=== PATIENT | male | born 1950 | race Caucasian/White ===

== ENCOUNTER 2020-08-19 08:31 | Day surgery (SDC) | payer OTHER, SELFPAY ==
--- NOTE | 2020-08-19 07:37 | W.ANESPRE ---
General Info Date of Service Date Performed: 08/19/20 Height: 5 ft 9 in Weight: 69.4 kg Body Mass Index (BMI): 22.6 Surgical Procedure: Operation Date: 08/19/20 10:40 Proposed Procedures Side Surgeon p Cataract Extraction with IOL Implant Right Mariusz Sanchez MD Meds Allergies and Home Medications Allergies Allergy/AdvReac Type Severity Reaction Status Date / Time naloxone Allergy Intermediate Skin Rash Unverified 08/19/20 08:52 simvastatin AdvReac Severe CRAMPS Unverified 08/19/20 08:52 shellfish derived AdvReac Intermediate Nausea Unverified 08/19/20 08:52 Home Medication Medication Instructions Recorded albuterol sulfate 2 puff INHALATION QID PRN 08/17/20 amlodipine 5 mg PO DAILY 08/17/20 aspirin 81 mg PO DAILY 08/17/20 budesonide-formoterol 2 puff INHALATION BID 08/17/20 diazepam 7.5 mg PO DAILY PRN 08/17/20 docusate sodium 100 mg PO BID 08/17/20 finasteride 5 mg PO DAILY 08/17/20 gabapentin 300 mg PO BID 08/17/20 metoprolol succinate 50 mg PO DAILY 08/17/20 nicotine 1 patch TRANSDERMAL Q24H 08/17/20 tamsulosin 0.8 mg PO DAILY 08/17/20 tiotropium bromide 2.5 puff INHALATION DAILY 08/17/20 Current Visit Medications: Current Medications Generic Name Dose Route Start Last Admin Trade Name Freq PRN Reason Stop Dose Admin Acetaminophen 1,000 mg 08/19/20 06:00 Acetaminophen 500 Mg Tab PO Q4H PRN PRN Miscellaneous Medication 0 ml 08/19/20 06:00 Prednisolone 1%, Moxifloxacin 0.5%, Nepafenac 0.1% 5ml Btl OD DIRECTED FLAKITA Miscellaneous Medication 0 ml 08/19/20 06:00 Tropicam./Phenyleph. (1/2.5%) 5 Ml Btl OD DIRECTED FLAKITA Tetracaine HCl 0 ml 08/19/20 06:00 Tetracaine 0.5% 4 Ml Btl OD DIRECTED FLAKITA PFSH Active Problems Active Problems: Problem Status Onset Code Posterior subcapsular age-related cataract, right eye H25.041 Cortical cataract of right eye H26.9 Nuclear sclerotic cataract of right eye H25.11 Medical History Medical History Allergy Barretts esophagus Benign hypertension BPH (benign prostatic hyperplasia) Cannabis dependence, episodic Carcinoma of renal pelvis Chronic alcoholism in remission COPD (chronic obstructive pulmonary disease) Coronary arteriosclerosis Edema Hammer toe Hyponatremia Impaired fasting glucose Lack of housing Pt. states he is all set with housing has a place. Lumbar radiculopathy Major depressive disorder, recurrent Osteoarthritis involving of spine per note Plantar wart Self-catheterizes urinary bladder Shoulder pain Spasm of thoracic back muscle Spinal stenosis, cervical region Tobacco use Surgical History Surgical History (Updated 08/19/20 @ 08:50 by Anayeli Machuca) History of coronary artery bypass graft x 1 2014 [facility] Hx of colonoscopy Hx of neck surgery S/P AVR (aortic valve replacement) 2014 F/U with [facility] Tobacco Smoking/Tobacco Use Status: Current every day Tobacco Type: cigarettes Alcohol Alcohol Intake: former Substance Use Substance use: Occasionally Substance use type: marijuana Vital Signs and Lab Results Lab Results Blood Type / Crossmatch: No Data to Display Complete Blood Count: No Data to Display Complete Metabolic Panel: No Data to Display Liver Function Panel: No Data to Display Coagulation Panel: No Data to Display Cardiac Panel: No Data to Display Arterial Blood Gas: No Data to Display Venous Blood Gas: No Data to Display Pancreas Panel: No Data to Display Thyroid Panel: No Data to Display Infectious Disease: No Data to Display Blood Cultures: No Data to Display Toxicology Panel: No Data to Display Anesthesia Assessment and Plan Anesthesia History Personal History: No History of Anesthesia Complications Family History: No Family History of Anesthesia Complications Exercise Tolerance Exercise Tolerance: Metabolic Equivalents>4 Pertinent Negatives Pertinent Negatives: No Symptoms of GERD, No Major Cardiovascular Symptoms or Complaints, No Major Pulmonary Symptoms or Complaints and No History of CVA/TIA Cardiac & Pulmonary Exam Cardiac Exam: Normal S1/S2 Heart Sounds Pulmonary Exam: Clear Bilateral Breath Sounds Airway Exam Known Difficult Airway: No Mallampati Class: 3 Mouth Opening: Normal (> 3cm) Thyromental Distance: Greater than 3 cm Neck Range of Motion: Limited ROM Neck Circumference: Normal Teeth Condition: Edentulous ASA Classification ASA Score: ASA 3 Emergency Case?: No NPO Status NPO Status: NPO Clears >2 hours, Solids >8 hours Anesthesia Plan Resuscitation Status: Full Code Anesthesia Technique: MAC Anesthesia Airway Planned: Natural Airway Monitors Used: Standard Monitors
[2020-08-19] MEDS: Tropicam./Phenyleph. (1/2.5%) 5 ML BTL OD ×3 (08:49→09:02)
[2020-08-19 09:03] VITALS: BP 140/104; PULSE 91; RESP 16; TEMP 36.5; O2SAT 98
[2020-08-19 09:34] VITALS: BMI 22.6
[2020-08-19] MEDS: Balanced Salt Soln.-PLUS 500 ML BAG (09:57)
--- NOTE | 2020-08-19 09:57 | W.ANESPOSTOP ---
Postoperative Evaluation Date, Time and Location Date Performed: 08/19/20 Time Performed: 10:27 Patient Location: Day Surgery Unit Vital Signs Most Recent Imported Vital Signs: Most Recent Vital Signs Temp Pulse Resp BP Pulse Ox 36.5 C 91 H 16 140/104 H 98 08/19/20 09:03 08/19/20 09:03 08/19/20 09:03 08/19/20 09:03 08/19/20 09:03 Most Recent Manually Entered Vital Signs: Adult Blood Pressure: 141/63 Heart Rate: 72 Respirations: 16 Oxygen Saturation (%): 96 Temperature (C): 36.5 C Pain Score (0-10 Scale): 0 Pain Score Most Recent Pain Score: Most Recent Pain Score Pain Level 2 08/19/20 09:03 Assessment Mental Status: Awake (Alert & Oriented to Patient Baseline) Airway and Respiratory Function: Patent airway with normal (patient baseline) respiratory exam Cardiovascular Function: Hemodynamically Stable Hydration Status: Adequately Hydrated Nausea & Vomiting: No Nausea or Vomiting Pain: Pt. Denies Any Pain Peripheral Nerve Block: Other (Local by Dr. Sanchez)
[2020-08-19] MEDS: Duovisc Viscoelastic System EACH 1 EACH (09:58)
[2020-08-19] MEDS: Lidocaine 1% Pres-Free 5 ML VIAL (09:59)
[2020-08-19] MEDS: Lidocaine 2% Jelly 6 ML SYR (10:00)
[2020-08-19] MEDS: Povidone-Iodine Ophth 30 ML BTL (10:02)
[2020-08-19] MEDS: Trypan Blue 0.06% 0.5 ML SYR (10:03)
[2020-08-19 10:25] VITALS: BP 141/63; PULSE 72; RESP 16; TEMP 36.5; O2SAT 96
--- NOTE | 2020-08-19 10:27 | W.PM.DSUDISC ---
Discharge Plan Disposition Patient Disposition: HOME Condition: Good Discharge Details Attending Provider: Mariusz Sanchez [facility] Provider[facility] Home Meds and New Rx's Prescriptions: No Action metoprolol succinate 50 mg Tablet Extended Release 24 Hr 50 mg PO DAILY RF: 0 tamsulosin 0.4 mg Capsule 0.8 mg PO DAILY RF: 0 nicotine 21 mg/24 hr Patch 24 Hour 1 patch transdermal Q24H RF: 0 gabapentin 300 mg Tablet 300 mg PO BID RF: 0 tiotropium bromide 2.5 mcg/actuation Mist 2.5 puff inhalation DAILY RF: 0 amlodipine 5 mg Tablet 5 mg PO DAILY RF: 0 aspirin 81 mg Tablet,Delayed Release (Dr/Ec) 81 mg PO DAILY RF: 0 albuterol sulfate 90 mcg/actuation Hfa Aerosol Inhaler 2 puff INHALATION QID PRNRF: 0 docusate sodium 100 mg Tablet 100 mg PO BID RF: 0 finasteride 5 mg Tablet 5 mg PO DAILY RF: 0 diazepam 5 mg Tablet 7.5 mg PO DAILY PRNRF: 0 budesonide-formoterol 160-4.5 mcg/actuation Hfa Aerosol Inhaler 2 puff inhalation BID RF: 0 Discharge Instructions Stand Alone Forms: Post-op Topical Cataract, Jarrett Mccormick ([facility]) Discharge Orders Discharge Orders: Discharge Order (Routine); Ordered 08/19/20 Ordered By: Mariusz Sanchez DS: Diagnosis Discharge Diagnosis (1) Nuclear sclerotic cataract of right eye: Status: Resolved (2) Cortical cataract of right eye: Status: Resolved (3) Posterior subcapsular age-related cataract, right eye: Status: Resolved
[2020-08-19 10:29] VITALS: BP 141/63; PULSE 72; RESP 16; TEMPC 36.5; O2SAT 96
--- NOTE | 2020-08-19 10:29 | W.PM.OP ---
Date of service: 08/19/20 Time of Service: 10:29 Operative Note Operative Note DATE OF PROCEDURE: 08/19/20 PRE-OP DIAGNOSIS: Nuclear/cortical/posterior subcapsular cataract, right eye Poor red reflex, right eye POST-OP DIAGNOSIS: same PROCEDURE: Cataract extraction using phacoemulsification with intraocular lens implantation, right eye, using capsular staining with Vision Blue SURGEON: Mariusz Sanchez ANESTHESIA TYPE: Local By Surgeon and MAC Refer to Anesthesia Record PATHOLOGY: none sent COMPLICATIONS: None Patient was transported to: same day Patient's condition: stable Implants: [employer] / [employer] Tecnis [id number] Indications: Progressive visual loss due to cataract, right eye Procedure Description: CATARACT SURGERY OPERATIVE REPORT PREOPERATIVE DIAGNOSIS: 1. Nuclear/cortical/posterior subcapsular cataract, right eye 2. Poor red reflex secondary to #1 POSTOPERATIVE DIAGNOSIS: Same OPERATION: 1. Cataract extraction using phacoemulsification with posterior chamber intraocular lens implant, right eye. 2. Capsular staining with Vision Blue IOL: IOL Campaign Fundraiser/Model: [employer] / CHRIS Tecnis [id number] IOL Power: + +19.0 diopters IOL Serial Number: [id number] Optic Diameter: 6.0mm Haptic/Overall Diameter: 13.0mm PHACO INFO: Karl mobintenturion Vision System with OZil and Active [employer] Cumulative Dispersed Energy (CDE): 9.67 seconds SURGEON: Mariusz Sanchez MD, WILLIE ANESTHESIA: Monitored Anesthesia Care (MAC), with local sub-tenon's anesthetic infiltration COMPLICATIONS: None SPECIMENS: None INDICATIONS FOR PROCEDURE: The patient is a 69-year-old gentleman with history of diminished visual acuity in his right eye. He is noted to have a dense posterior subcapsular cataract with nuclear and cortical cataract as well. He has very poor visual acuity. The option of cataract surgery was offered to the patient and he wished to proceed. PROCEDURE: The correct surgical eye was identified and marked as the right eye and the pupil was dilated in the preoperative area using mydriatics and cycloplegics. The dilated pupil size was 7.0 mm. Oral sedation was administered in the form of an Imprimis MKO Melt (midazolam 3mg/ketamine 25mg/ondansetron 2mg). The patient was brought to the operating room where cardiopulmonary monitoring was instituted and surgical time-out was performed, confirming the correct operative eye and IOL power. Positioning was challenging due to cervical fusion. Topical anesthesia was administered and ophthalmic povidone-iodine 5% was instilled into the conjunctival fornices. Lidocaine gel was applied to the cornea and the martha-ocular area was prepped with Betadine 10% solution and draped in the usual sterile fashion for intraocular surgery, including an aperture drape. A Tegaderm transparent film dressing was cut in half and used to cover the lashes and lid margins. Care was taken to sequester the lashes and lid margins under the Tegaderm dressing. A lid speculum was placed between the lids of the operative eye and the Hao-Joselin operating microscope was maneuvered into position. The patient had a strong Rhodes's phenomenon, making exposure challenging. Marshal scissors were then used to make a conjunctival buttonhole approximately 6mm posterior to the limbus in the inferonasal quadrant. Blunt dissection was carried out to expose bare sclera, and a blunt-tipped sub-tenon?s anesthesia cannula was introduced and passed posteriorly along the globe where non-preserved plain lidocaine was injected into posterior sub-Tenon?s space. A sideport knife was used to make a paracentesis port inferotemporally. Intraocular phenylephrine/lidocaine was injected into the anterior chamber. Air was injected into the anterior chamber, followed by Vision Blue, which was painted over the anterior capsule and then irrigated out with BSS. The anterior chamber was filled with viscoelastic. A 2.4mm keratome knife was used to create a half-thickness groove at the limbus and then to construct a three-plane near-clear corneal tunnel extending 2.0mm into clear cornea superiortemporally. A flap was raised on the anterior capsule and capsulorhexis forceps were used to complete a continuous curvilinear capsulorhexis of 5.0 mm. The anterior chamber was noted to be very deep. Balanced salt solution was then used to perform cortical cleaving hydrodissection and nuclear hydrodelineation until the lens could be freely rotated within the capsular bag. The lens nucleus was then disassembled and removed within the capsular bag and iris plane using phacoemulsification. Residual cortical material was removed using the I/A handpiece. The posterior capsule was carefully polished to remove as much residual lens epithelial cells as safely possible. The capsular bag was then inflated and the anterior chamber deepened with viscoelastic. The lens implant described above was inserted into the capsular bag using the CHRIS [place] Injector. A Kuglen hook was used to dial the IOL into position. Residual viscoelastic was then removed first from posterior to the IOL, then from the anterior chamber using the I/A handpiece. The lens implant was noted to center nicely within the capsular bag. The incisions were stromally hydrated, and the anterior chamber was reformed using BSS. Then 0.5cc of moxifloxacin 1.0mg/ml were injected into the capsular bag and anterior chamber. The incisions were checked with a Weck spear and found to be secure. Several drops of ophthalmic povidone-iodine 5% were then applied to the eye followed by two drops of Imprimis combination prednisolone/moxifloxacin/nepafenac solution. The drapes were removed and a clear plastic protective eye shield was placed over the eye. The patient was then returned to Same Day Surgery in stable condition.
[2020-08-19 10:53] VITALS: BP 111/75; PULSE 72; RESP 16; TEMP 36.6; O2SAT 96
== END 2020-08-19 11:04 | disposition home or self-care (01) ==
PROVIDERS: Visit Provider Ophthalmology
PROC: (CPT 66984; principal; 2020-08-19 10:30)
DX: H25.041 Posterior subcapsular polar age-related cataract, right eye (principal); I10 Essential (primary) hypertension; J44.9 Chronic obstructive pulmonary disease, unspecified
CPT/HCPCS: 66984; V2632

== ENCOUNTER 2020-10-28 11:24 | Outpatient (CLI) | payer OTHER, SELFPAY ==
[2020-10-28 13:23] LABS: Source Nasal/Nares
[2020-10-28 16:55] LABS: COVID-19 PCR Negative (Negative)
== END 2020-10-28 11:25 | disposition home or self-care (01) ==
PROVIDERS: PCP Nurse Practitioner Primary Care; Visit Provider Ophthalmology
DX: Z20.822 Contact with and (suspected) exposure to COVID-19 (principal); Z01.818 Encounter for other preprocedural examination
CPT/HCPCS: 87635

== ENCOUNTER 2020-10-31 08:05 | Day surgery (SDC) | payer OTHER, SELFPAY ==
[2020-10-31 08:44] VITALS: BP 141/74; PULSE 69; RESP 16; TEMP 36.6; O2SAT 96
[2020-10-31] MEDS: Tropicam./Phenyleph. (1/2.5%) 5 ML BTL OD ×3 (08:50→09:00)
[2020-10-31 09:07] VITALS: BMI 20.9
--- NOTE | 2020-10-31 09:07 | W.ANESPRE ---
General Info Date of Service Date Performed: 10/31/20 Height: 5 ft 9 in Weight: 64.5 kg Body Mass Index (BMI): 20.9 Surgical Procedure: Operation Date: 10/31/20 10:40 Proposed Procedures Side Surgeon p Cataract Extraction with IOL Implant Left Mariusz Sanchez MD Meds Allergies and Home Medications Allergies Allergy/AdvReac Type Severity Reaction Status Date / Time naloxone Allergy Intermediate Skin Rash Unverified 10/31/20 08:39 simvastatin AdvReac Severe CRAMPS Unverified 10/31/20 08:39 shellfish derived AdvReac Intermediate Nausea Unverified 10/31/20 08:39 Home Medication Medication Instructions Recorded albuterol sulfate 2 puff INHALATION QID PRN 08/17/20 amlodipine 5 mg PO DAILY 08/17/20 aspirin 81 mg PO DAILY 08/17/20 budesonide-formoterol 2 puff INHALATION BID 08/17/20 diazepam 7.5 mg PO DAILY PRN 08/17/20 docusate sodium 100 mg PO BID 08/17/20 finasteride 5 mg PO DAILY 08/17/20 gabapentin 300 mg PO BID 08/17/20 metoprolol succinate 50 mg PO DAILY 08/17/20 nicotine 1 patch TRANSDERMAL Q24H 08/17/20 tamsulosin 0.8 mg PO DAILY 08/17/20 tiotropium bromide 2.5 puff INHALATION DAILY 08/17/20 Current Visit Medications: Current Medications Generic Name Dose Route Start Last Admin Trade Name Freq PRN Reason Stop Dose Admin Acetaminophen 1,000 mg 10/31/20 06:00 Acetaminophen 500 Mg Tab PO Q4H PRN PRN Miscellaneous Medication 0 ml 10/31/20 06:00 Prednisolone 1%, Moxifloxacin 0.5%, Nepafenac 0.1% 5ml Btl OD DIRECTED FLAKITA Miscellaneous Medication 0 ml 10/31/20 06:00 10/31/20 09:00 Tropicam./Phenyleph. (1/2.5%) 5 Ml Btl OD 1 drp DIRECTED FLAKITA Administration Tetracaine HCl 0 ml 10/31/20 06:00 Tetracaine 0.5% 4 Ml Btl OD DIRECTED FLAKITA PFSH Active Problems Active Problems: Problem Status Onset Code Posterior subcapsular age-related cataract of left eye H25.042 Cortical cataract of left eye H26.9 Nuclear sclerotic cataract of left eye H25.12 Nuclear sclerotic cataract of right eye H25.11 Cortical cataract of right eye H26.9 Posterior subcapsular age-related cataract, right eye H25.041 Medical History Medical History Allergy Barretts esophagus Benign hypertension BPH (benign prostatic hyperplasia) Cannabis dependence, episodic Carcinoma of renal pelvis Chronic alcoholism in remission COPD (chronic obstructive pulmonary disease) Coronary arteriosclerosis Edema Hammer toe Hyponatremia Impaired fasting glucose Lack of housing Pt. states he is all set with housing has a place. Lumbar radiculopathy Major depressive disorder, recurrent Osteoarthritis involving of spine per note Plantar wart Self-catheterizes urinary bladder Shoulder pain Spasm of thoracic back muscle Spinal stenosis, cervical region Tobacco use Surgical History Surgical History History of coronary artery bypass graft x 1 2013 [facility]x of colonoscopy Hx of neck surgery S/P AVR (aortic valve replacement) 2013 F/[facility] Tobacco Smoking/Tobacco Use Status: Current every day Tobacco Type: cigarettes Smoking cigarettes per day: 15 Alcohol Alcohol Intake: former Substance Use Substance use: Rarely Substance use type: marijuana Details: Pt reports not using today Vital Signs and Lab Results Vital Signs Most Recent Vital Signs in EMR: Most Recent Vital Signs Temp Pulse Resp BP Pulse Ox 36.6 C 69 16 141/74 H 96 10/31/20 08:44 10/31/20 08:44 10/31/20 08:44 10/31/20 08:44 10/31/20 08:44 Lab Results Blood Type / Crossmatch: No Data to Display Complete Blood Count: No Data to Display Complete Metabolic Panel: No Data to Display Liver Function Panel: No Data to Display Coagulation Panel: No Data to Display Cardiac Panel: No Data to Display Arterial Blood Gas: No Data to Display Venous Blood Gas: No Data to Display Pancreas Panel: No Data to Display Thyroid Panel: No Data to Display Infectious Disease: Coronavirus (COVID-19)(PCR) Negative (Negative) 10/28/20 09:30 10/28/20 Coronavirus 2019 Source Nasal/Nares 10/28/20 09:30 10/28/20 Blood Cultures: No Data to Display Toxicology Panel: No Data to Display Anesthesia Assessment and Plan Anesthesia History Personal History: No History of Anesthesia Complications Family History: No Family History of Anesthesia Complications Exercise Tolerance Exercise Tolerance: Metabolic Equivalents>4 Pertinent Negatives Pertinent Negatives: No Symptoms of GERD, No Major Cardiovascular Symptoms or Complaints, No Major Pulmonary Symptoms or Complaints and No History of CVA/TIA Cardiac & Pulmonary Exam Cardiac Exam: Normal S1/S2 Heart Sounds Pulmonary Exam: Clear Bilateral Breath Sounds Airway Exam Known Difficult Airway: No Mallampati Class: 3 Mouth Opening: Normal (> 3cm) Thyromental Distance: Greater than 3 cm Neck Range of Motion: Limited ROM Neck Circumference: Normal Teeth Condition: Edentulous ASA Classification ASA Score: ASA 3 Emergency Case?: No NPO Status NPO Status: NPO Clears >2 hours, Solids >8 hours Anesthesia Plan Resuscitation Status: Full Code Anesthesia Technique: MAC Anesthesia Airway Planned: Natural Airway Monitors Used: Standard Monitors
[2020-10-31] MEDS: Povidone-Iodine Ophth 30 ML BTL (09:48)
[2020-10-31] MEDS: Tetracaine 0.5% 4 ML BTL OD (09:48)
[2020-10-31] MEDS: Balanced Salt Soln.-PLUS 500 ML BAG (09:48)
[2020-10-31] MEDS: Lidocaine 1% Pres-Free 5 ML VIAL (09:49)
[2020-10-31] MEDS: Lidocaine 2% Jelly 6 ML SYR (09:49)
[2020-10-31] MEDS: Duovisc Viscoelastic System EACH 1 EACH (09:49)
[2020-10-31] MEDS: Trypan Blue 0.06% 0.5 ML SYR (09:54)
--- NOTE | 2020-10-31 10:08 | W.ANESPOSTOP ---
Postoperative Evaluation Date, Time and Location Date Performed: 10/31/20 Time Performed: 10:12 Patient Location: Day Surgery Unit Vital Signs Most Recent Imported Vital Signs: Most Recent Vital Signs Temp Pulse Resp BP Pulse Ox 36.6 C 69 16 141/74 H 96 10/31/20 08:44 10/31/20 08:44 10/31/20 08:44 10/31/20 08:44 10/31/20 08:44 Most Recent Manually Entered Vital Signs: Adult Blood Pressure: 125/86 Heart Rate: 68 Respirations: 16 Oxygen Saturation (%): 98 Temperature (C): 36.7 C Pain Score (0-10 Scale): 0 Pain Score Most Recent Pain Score: Most Recent Pain Score Pain Level 0 10/31/20 08:44 Assessment Mental Status: Awake (Alert & Oriented to Patient Baseline) Airway and Respiratory Function: Patent airway with normal (patient baseline) respiratory exam Cardiovascular Function: Hemodynamically Stable Hydration Status: Adequately Hydrated Nausea & Vomiting: No Nausea or Vomiting Pain: Pt. Denies Any Pain Peripheral Nerve Block: Other (Local by Dr. Sanchez)
[2020-10-31 10:12] VITALS: BP 125/86; PULSE 72; RESP 16; TEMP 36.7; O2SAT 16
--- NOTE | 2020-10-31 10:12 | W.PM.DSUDISC ---
Discharge Plan Disposition Patient Disposition: HOME Condition: Good Discharge Details Attending Provider: Mariusz Sanchez Primary Care Provider: Isabel Reed Home Meds and New Rx's Prescriptions: No Action metoprolol succinate 50 mg Tablet Extended Release 24 Hr 50 mg PO DAILY RF: 0 tamsulosin 0.4 mg Capsule 0.8 mg PO DAILY RF: 0 nicotine 21 mg/24 hr Patch 24 Hour 1 patch transdermal Q24H RF: 0 gabapentin 300 mg Tablet 300 mg PO BID RF: 0 tiotropium bromide 2.5 mcg/actuation Mist 2.5 puff inhalation DAILY RF: 0 amlodipine 5 mg Tablet 5 mg PO DAILY RF: 0 aspirin 81 mg Tablet,Delayed Release (Dr/Ec) 81 mg PO DAILY RF: 0 albuterol sulfate 90 mcg/actuation Hfa Aerosol Inhaler 2 puff INHALATION QID PRNRF: 0 docusate sodium 100 mg Tablet 100 mg PO BID RF: 0 finasteride 5 mg Tablet 5 mg PO DAILY RF: 0 diazepam 5 mg Tablet 7.5 mg PO DAILY PRNRF: 0 budesonide-formoterol 160-4.5 mcg/actuation Hfa Aerosol Inhaler 2 puff inhalation BID RF: 0 Discharge Instructions Stand Alone Forms: Post-op Topical Cataract Discharge Orders Discharge Orders: Discharge Order (Routine); Ordered 10/31/20 Ordered By: Mariusz Sanchez DS: Diagnosis Discharge Diagnosis (1) Posterior subcapsular age-related cataract of left eye: Status: Resolved (2) Cortical cataract of left eye: Status: Resolved (3) Nuclear sclerotic cataract of left eye: Status: Resolved
[2020-10-31 10:14] VITALS: PULSE 68; RESP 16; TEMPC 36.7; O2SAT 98
--- NOTE | 2020-10-31 10:14 | ROE_ITS ---
Date of service: 10/31/20 Time of Service: 10:14 Operative Note Operative Note DATE OF PROCEDURE: 10/31/20 PRE-OP DIAGNOSIS: Nuclear/cortical/posterior subcapsular cataract, left eye Poor red reflex secondary to cataract, left eye POST-OP DIAGNOSIS: same PROCEDURE: Cataract extraction using phacoemulsification with intraocular lens implant, left eye, using capsular staining with Vision Blue SURGEON: Mariusz Sanchez ANESTHESIA TYPE: Local By Surgeon and MAC Refer to Anesthesia Record COMPLICATIONS: None Patient was transported to: same day Patient's condition: stable Implants: [employer] / [employer] Tecnis [id number] Indications: Progressive decreased vision due to cataract, left eye, with poor red reflex Procedure Description: CATARACT SURGERY OPERATIVE REPORT PREOPERATIVE DIAGNOSIS: 1. Nuclear/cortical/posterior subcapsular cataract, left eye 2. Poor red reflex secondary to #1 POSTOPERATIVE DIAGNOSIS: Same OPERATION: 1. Cataract extraction using phacoemulsification with posterior chamber intraocular lens implant, left eye. 2. Capsular staining with Vision Blue IOL: IOL Employment Director/Model: [employer] / CHRIS Tecnis [id number] IOL Power: + 19.0 diopters IOL Serial Number: [id number] Optic Diameter: 6.0 mm Haptic/Overall Diameter: 13.0 mm PHACO INFO: Karl [employer]Dynam[employer]urion Vision System with OZil and [employer]uid[employer] Cumulative Dispersed Energy (CDE): 6.94 seconds SURGEON: Mariusz Sanchez MD, WILLIE ANESTHESIA: Monitored [facility] Care (MAC), with local sub-tenon's anesthetic infiltration COMPLICATIONS: None SPECIMENS: None INDICATIONS FOR PROCEDURE: The patient is a 69-year-old gentleman with history of diminished visual acuity in both eyes secondary to the development of bilateral cataract. He is significantly symptomatic that he desires cataract surgery and attempt to improve and maximize his vision. He has already undergone cataract surgery in the right eye, and had some lingering postoperative corneal edema which has progressively improved. He now presents for cataract surgery in the left eye. PROCEDURE: The correct surgical eye was identified and marked as the left eye and the pupil was dilated in the preoperative area using mydriatics and cycloplegics. The dilated pupil size was 7.0 mm. Oral sedation was administered in the form of an Imprimis MKO Melt (midazolam 3mg/ketamine 25mg/ondansetron 2mg). The patient was brought to the operating room where cardiopulmonary monitoring was instituted and surgical time-out was performed, confirming the correct operative eye and IOL power. Topical anesthesia was administered and ophthalmic povidone-iodine 5% was instilled into the conjunctival fornices. The room lights had to be turned off due to extreme photophobia. Lidocaine gel was applied to the cornea and the martha-ocular area was prepped with Betadine 10% solution and draped in the usual sterile fashion for intraocular surgery, including an aperture drape. A Tegaderm transparent film dressing was cut in half and used to cover the lashes and lid margins. Care was taken to sequester the lashes and lid margins under the Tegaderm dressing. A lid speculum was placed between the lids of the operative eye and the Hao-Joselin operating microscope was maneuvered into position. A strong Rhodes's phenomenon was present, making exposure challenging. Marshal scissors were then used to make a conjunctival buttonhole approximately 6mm posterior to the limbus in the inferonasal quadrant. Blunt dissection was carried out to expose bare sclera, and a blunt-tipped sub-tenon?s anesthesia cannula was introduced and passed posteriorly along the globe where non- preserved plain lidocaine was injected into posterior sub-Tenon?s space. A sideport knife was used to make a paracentesis port superiorly/superiortemporally. Intraocular phenylephrine/lidocaine was injected int the anterior chamber.. Air was then injected into the anterior chamber, followed by Vision Blue, which was painted over the anterior capsule and then irrigated out using BSS. The anterior chamber was filled with viscoelastic. A 2.4mm keratome knife was used to create a half-thickness groove at the limbus and then to construct a three-plane near-clear corneal tunnel extending 2.0mm into clear cornea at the 3:00 position. A flap was raised on the anterior capsule and capsulorhexis forceps were used to complete a continuous curvilinear capsulorhexis of 5.5 mm. Balanced salt solution was then used to perform cortical cleaving hydrodissection and nuclear hydrodelineation until the lens could be freely rotated within the capsular bag. The lens nucleus was then disassembled and removed within the capsular bag and iris plane using phacoemulsification. Residual cortical material was removed using the 45-degree angled silicone I/A tip with 0.3mm port. The posterior capsule was carefully polished to remove as much residual lens epithelial cells as safely possible. The capsular bag was then inflated and the anterior chamber deepened with viscoelastic. The lens implant described above was inserted into the capsular bag using the CHRIS [place] Injector. A Kuglen hook was used to dial the IOL into position. Residual viscoelastic was then removed first from posterior to the IOL, then from the anterior chamber using the I/A handpiece. The lens implant was noted to center nicely within the capsular bag. The incisions were stromally hydrated, and the anterior chamber was reformed using BSS. Then 0.5cc of moxifloxacin 1.0mg/ml were injected into the capsular bag and anterior chamber. The incisions were checked with a Weck spear and found to be secure. Several drops of ophthalmic povidone-iodine 5% were then applied to the eye followed by two drops of Imprimis combination prednisolone/moxifloxacin/nepafenac solution. The drapes were removed and a clear plastic protective eye shield was placed over the eye. The patient was then returned to [facility] in stable condition.
[2020-10-31 10:15] VITALS: BP 125/86
[2020-10-31 10:40] VITALS: BP 132/80; PULSE 74; RESP 18; TEMP 36.7; O2SAT 98
== END 2020-10-31 10:44 | disposition home or self-care (01) ==
PROVIDERS: PCP Nurse Practitioner Primary Care; Visit Provider Ophthalmology
PROC: (CPT 66984; principal; 2020-10-31 10:30)
DX: H25.042 Posterior subcapsular polar age-related cataract, left eye (principal); J44.9 Chronic obstructive pulmonary disease, unspecified; F17.210 Nicotine dependence, cigarettes, uncomplicated
CPT/HCPCS: 66984; V2632